=== PATIENT | female | born 1965 | race Caucasian/White ===

== ENCOUNTER 2020-05-30 04:12 | Emergency (ER) | payer BC ==
[2020-05-30] MEDS ORDERED: HYDROmorphone 0.5 MG/0.5 ML Syringe IM ONE (04:35)
--- NOTE | 2020-05-30 04:41 | EDM.PDOC ---
ED HPI GENERAL MEDICAL PROBLEM - General Chief Complaint: Lower Extremity Injury/Pain Stated Complaint: LEFT FOOT POSSIBLY BROKEN Time Seen by Provider: 05/30/20 04:22 Source of Information: Reports: Patient, Family (Son) History Limitations: Reports: No Limitations - History of Present Illness INITIAL COMMENTS - FREE TEXT/NARRATIVE: Ms. Mackay is a pleasant 54-year-old woman who now presents the ED with a left foot injury. She states that she was going down stairs in her home around 20:30 to 21:00 last night, when she missed a step, injuring her left foot by possibly twisting or rolling it inward. She denies any other injuries. She states that she took 1 tablet of Tylenol around 01:00, but no other home remedies or treatments. The patient denies prior left foot injury. Here in the ED, the patient's initial BP is found to be mildly elevated at 146/101, with a tachycardia of 117 bpm. Otherwise, she is afebrile, saturating 96% on room air. Other than lizandro's left foot injury, the patient denies recent fever, chills, sore throat, ear pain, nasal or sinus congestion, cough, dyspnea, chest pain, palpitations, nausea, vomiting, constipation, diarrhea, abdominal pain, urinary symptoms, recent weight gain or weight loss, recent bloody bowel movements or black bowel movements, recent joint aches, headaches, or rashes. The patient's PCP is Dr. Nabeel Rangel, however, she has also seen Portia Stone NP, for a second opinion. Left Feet Pain Score (Numeric/FACES): 9 - Related Data Allergies Allergy/AdvReac Type Severity Reaction Status Date / Time codeine Allergy Itching Verified 05/30/20 04:21 Home Meds: Home Meds Acetaminophen [Tylenol Extra Strength] 500 mg PO ONCALL PRN 05/30/20 [History] Past Medical History Cardiovascular History: Reports: Hypertension - Past Surgical History HEENT Surgical History: Reports: Oral Surgery (wisdom teeth extraction) GI Surgical History: Reports: Cholecystectomy (around 1992) Female Surgical History: Reports: Hysterectomy (complete) Musculoskeletal Surgical History: Reports: Shoulder Surgery (left, arthroscopic) Social & Family History - Tobacco Use Smoking Status *Q: Current Every Day Smoker Years of Tobacco use: 21 Packs/Tins Daily: 0.5 - Alcohol Use Alcohol Use History: Yes Alcohol Use Frequency: Socially - Recreational Drug Use Recreational Drug Use: No - Living Situation & Occupation Living situation: Reports: Single, with Family (2 sons) 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 ED EXAM, GENERAL - Physical Exam Exam: See Below Exam Limited By: No Limitations General Appearance: Alert, WD/WN, No Apparent Distress Peripheral Pulses: 3+: Posterior Tibial (L), Posterior Tibial (R), Dorsalis Pedis (L), Dorsalis Pedis (R) Extremities: Other (There is a nickel-sized area of erythema to the lateral aspect of the patient's left foot, otherwise, no visible abnormalities, such as swelling, ecchymosis, or abrasion. The foot is not inverted at rest. The patient reports considerable tenderness to palpation of the lateral aspect of the left foot, particularly to the inferior lateral aspect, and pain is induced with an attempt at passive inversion of the left foot. No tenderness to palpation of the sole itself. Neurovascular status of the left lower extremity is intact.) Course - Vital Signs Last Recorded V/S: Last Vital Signs Temp 36.6 C 05/30/20 04:22 Pulse 117 H 05/30/20 04:22 Resp 17 05/30/20 04:22 BP 146/101 H 05/30/20 04:22 Pulse Ox 96 05/30/20 04:22 - Orders/Labs/Meds Orders: Active Orders 24 hr Category Date Time Status Foot Comp Min 3V Lt [CR] Stat Exams 05/30/20 04:26 Ordered DME for Discharge [COMM] Stat Oth 05/30/20 04:52 Ordered Meds: Medications Discontinued Medications Generic Name Dose Route Start Last Admin Trade Name Freq PRN Reason Stop Dose Admin Hydromorphone HCl 0.5 mg 05/30/20 04:35 05/30/20 04:47 Dilaudid IM 05/30/20 04:36 0.5 mg ONETIME ONE Administration Ibuprofen 600 mg 05/30/20 04:51 05/30/20 04:59 Motrin PO 05/30/20 04:52 600 mg ONETIME ONE Administration - Re-Assessments/Exams Free Text/Narrative Re-Assessment/Exam: 05/30/20 04:35 As above, the patient injured the lateral aspect of her left foot when she missed a step while going down stairs earlier tonight, possibly twisting or rolling her foot inward. She has considerable tenderness to the inferior- lateral aspect of her left foot, however, while there is subtle erythema to the lateral aspect of her foot, there are no other visible abnormalities, such as swelling, ecchymosis, or abrasion. My suspicion for a fracture is low, however, I have ordered x-rays of her left foot to be sure. In the meantime, the patient will be given an intramuscular injection of Dilaudid, and I will get her an ice pack. 05/30/20 04:48 4-view radiographs of the left foot appear to be grossly normal, with no fractur es or dislocations identified. Formal read per the Radiologist pending. 05/30/20 04:52 X-ray results discussed with the patient and her son. As above, it appears that the patient strained her left foot. A splint is not necessary, however, I will have her fitted for crutches. I am recommending that she ice and elevate her left foot as much as possible over the next 2 days, and she take over-the- counter ibuprofen [id number], with food. I will refer her to Dr. Schultz in the event that her foot does not get better within a few days. Departure - Departure Time of Disposition: 04:53 Disposition: Home, Self-Care 01 Condition: Good Clinical Impression: Strain of left foot - Discharge Information *PRESCRIPTION DRUG MONITORING PROGRAM REVIEWED*: Not Applicable *COPY OF PRESCRIPTION DRUG MONITORING REPORT IN PATIENT MAYRA: Not Applicable Instructions: Foot Sprain Referrals: Nabeel Rangel MD [Primary Care Provider] - Portia Stone NP [Ordering Only Provider] - Deondre Schultz MD [Physician] - Forms: ED Department Discharge Additional Instructions: You were seen in the emergency room after injuring your left foot when missing a step while going downstairs tonight. Work-up in the ER included x-rays of your left foot, which returned unremarkable. No broken bones or dislocations were found. Based on your history, physical exam, and ER tests, you have most likely strained some of the connective tissues in your left foot. We recommend that you ice and elevate your left foot as much as possible over the next 2 days. We recommend that you take [id number] ibuprofen, 3 tablets (600 mg) every 8 hours, with food, [id number], as needed for discomfort. You have been fitted with crutches. You may use these to ambulate until your foot is feeling better. If you continue to have pain beyond a few days, please follow-up with the Orthopedic Surgeon Dr. Deondre Schultz for further evaluation. If any other problems, please do not hesitate to return to the ER. Sepsis Event Note (ED) - Evaluation Sepsis Screening Result: No Definite Risk - Focused Exam Vital Signs: Vital Signs Temp Pulse Resp BP Pulse Ox 05/30/20 04:22 36.6 C 117 H 17 146/101 H 96 - My Orders Last 24 Hours: My Active Orders 05/30/20 04:26 Foot Comp Min 3V Lt [CR] Stat 05/30/20 04:52 DME for Discharge [COMM] Stat - Assessment/Plan Last 24 Hours: My Active Orders 05/30/20 04:26 Foot Comp Min 3V Lt [CR] Stat 05/30/20 04:52 DME for Discharge [COMM] Stat
[2020-05-30] MEDS ORDERED: Ibuprofen 600 MG Tab PO ONE (04:51)
--- NOTE | 2020-05-30 14:19 | CR ---
Left foot: 4 views of the left foot were obtained. Comparison: No previous foot study. Joint spaces are preserved. No fracture, dislocation or other bony abnormality is appreciated. Impression: 1. No abnormality is appreciated on forward view left foot exam. Diagnostic code #1 This report was dictated in MDT
== END 2020-05-30 05:08 | disposition home or self-care (01) ==
LOC: JD.ED 04:12
DX: S96.912A Strain of unspecified muscle and tendon at ankle and foot level, left foot, initial encounter (principal); I10 Essential (primary) hypertension; F17.210 Nicotine dependence, cigarettes, uncomplicated; Z88.5 Allergy status to narcotic agent; Z90.710 Acquired absence of both cervix and uterus; Z90.49 Acquired absence of other specified parts of digestive tract; Z98.890 Other specified postprocedural states; X50.1XXA Overexertion from prolonged static or awkward postures, initial encounter
CPT/HCPCS: 73630; 96372; 99283; A9270; J1170

== ENCOUNTER 2021-11-27 18:37 | Emergency (ER) | payer SELFPAY | END 2021-11-27 21:25 | disposition home or self-care (01) | LOC: JD.ED 18:37 | DX: R20.2 Paresthesia of skin (principal); I10 Essential (primary) hypertension; K21.9 Gastro-esophageal reflux disease without esophagitis; R94.31 Abnormal electrocardiogram [ECG] [EKG]; F17.210 Nicotine dependence, cigarettes, uncomplicated; Z88.5 Allergy status to narcotic agent; Z79.899 Other long term (current) drug therapy | CPT/HCPCS: 36415; 70450; 70450-26; 80053; 80307; 82947; 83735; 84484; 85025; 85610; 93005; 93010; 99283; 99284-25 ==

== ENCOUNTER 2022-02-13 18:04 | Emergency (ER) | payer SELFPAY ==
[2022-02-13] MEDS ORDERED: Acetaminophen/HYDROcodone 325-5 MG Tab PO ONE (19:03)
== END 2022-02-13 20:30 | disposition home or self-care (01) ==
LOC: JD.ED 18:04
DX: R07.89 Other chest pain (principal); I10 Essential (primary) hypertension; Z88.5 Allergy status to narcotic agent; Z79.899 Other long term (current) drug therapy
CPT/HCPCS: 71046; 99283; A9270